=== PATIENT | male | born 1975 | race Caucasian/White ===

== ENCOUNTER 2016-11-10 17:19 | Emergency (ER) | payer BC ==
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
[2016-11-10] MEDS ORDERED: HYDROCODONE/APAP 5/325 TAB ONE (18:30)
[2016-11-10 18:50] VITALS: BP 139/118; PULSE 79; RESP 16; TEMP 98.8; O2SAT 99
== END 2016-11-10 18:51 | disposition home or self-care (01) ==
DX: S09.90XA Unspecified injury of head, initial encounter (principal); S63.91XA Sprain of unspecified part of right wrist and hand, initial encounter; S39.92XA Unspecified injury of lower back, initial encounter; V18.0XXA Pedal cycle driver injured in noncollision transport accident in nontraffic accident, initial encounter; Y99.8 Other external cause status; Y93.89 Activity, other specified
CPT/HCPCS: L3807

== ENCOUNTER → 2016-12-04 | Outpatient (CLI) | payer BC | LOC: BMCIMAGING 08:21 | PROVIDERS: ATTEND Physician Assistant | DX: R22.42 Localized swelling, mass and lump, left lower limb (principal) ==